=== PATIENT | male | born 1980 | race Caucasian/White ===

== ENCOUNTER 2025-01-26 09:35 | Emergency (ER) | payer OTHER, SELFPAY ==
[2025-01-26 09:51] VITALS: BP 108/90; PULSE 74; RESP 16; TEMP 36.5; O2SAT 100
[2025-01-26] MEDS: LIDOCAINE 1% LOCAL INJ 2 ML AMPUL 8 ML INFILTRATE (10:01)
--- NOTE | 2025-01-26 10:49 | ED_ITS ---
HPI - Wound/Laceration General Chief Complaint: Wound/Laceration Stated Complaint: Cut R Hand Time Seen by Provider: 01/26/25 10:00 Source: patient and RN notes reviewed Mode of arrival: ambulatory Limitations: no limitations History of Present Illness HPI narrative: 45-year-old male patient presents to the [facility] complaining of laceration to right hand. Patient has had approximately 30 minutes ago he was at work using a brain new razor when he accidentally cut the palmar surface his right hand. Patient reports to lacerations to the medial palmar hand near his pinky. Patient denies any dysfunction in his hand. Denies any numbness or tingling. Hemostasis achieved prior to arrival. Patient's tetanus is up-to-date. Patient denies any other injuries or symptoms. Patient used a cotton flannel to control bleeding. Related Data Home Medications ?Medication ?Instructions ?Recorded ?Confirmed ?Last Taken ?Type atorvastatin 20 mg tablet mg 01/26/25 Unknown History chlorthalidone 25 mg tablet mg 01/26/25 Unknown Histo ry fenofibrate 160 mg tablet mg 01/26/25 Unknown History lisinopril 20 mg tablet mg 01/26/25 Unknown History omeprazole 40 mg capsule,delayed mg 01/26/25 Unknown History release sucralfate 1 gram tablet 01/26/25 Unknown History Allergies Allergy/AdvReac Type Severity Reaction Status Date / Time No Known Allergies Allergy Verified 01/26/25 09:52 Review of Systems Review of Systems: CONSTITUTIONAL: Denies fever, chills, or sweats. EYES: Denies visual changes, redness, or discharge. ENT: Denies rhinorrhea, congestion, sore throat, or otalgia. CARDIOVASCULAR: Denies chest pain, palpitations, or edema. RESPIRATORY: Denies cough or dyspnea. GASTROINTESTINAL: Denies abdominal pain, nausea, vomiting, or diarrhea. GENITOURINARY: Denies dysuria or hematuria. SKIN: Denies rash or itching. Positive for laceration. MUSCULOSKELETAL: Denies back pain, joint pain, or myalgia. NEUROLOGIC: Denies headache, numbness, or weakness. PSYCHIATRIC: Denies anxiety or depression. All other systems reviewed are negative, except as documented in HPI. PMFSH Comments At the time of my signature, I reviewed and agree with the nursing past medical, surgical, social, and family history. There is no relevant family history pertinent to the patient complaint. Exam Narrative: GENERAL: This is a well-nourished, well-developed adult, in no apparent distress. They are non ill-appearing, nontoxic appearing. HEAD: normocephalic, atraumatic. EYES: Sclera clear/white. Conjunctiva normal. Vision is grossly intact. Extraocular movements intact EARS: External ears normal, Hearing grossly intact. NOSE: External nose normal THROAT: Mucous membranes moist, NECK: Neck supple, CARDIOVASCULAR: Regular rate and rhythm RESPIRATORY: Respiratory rate normal, respiratory effort nonlabored, no respir atory distress SKIN: warm, Dry, intact with no suspicious lesions or rash, good texture and turgor. NEURO: awake, alert, and oriented to person, place and time. There were no obvious focal neurologic abnormalities. EXTREMITIES: Right hand: There is a laceration to the medial palmar surface of the right hand. On laceration is irregular with a flap, distal palmar laceration measuring approximately 3 cm, which approximates well. There is another laceration to the proximal palmar medial surface of the right hand head is linear and approximates well measuring approximately 4 cm long. There is a foreign body present in each wound appears to be cotton like fuzz. Lacerations are near the 5th digit. On the palm. Patient is able to flex and extend against resistance at the DIP PIP, MCP joint of the 5th digit. Patient can feel me touch the tips of his fingers. Capillary refill less than 2 seconds, sensations intact. Left radial pulse 2 +and palpable. Radial, ulnar, median nerve distribution intact. Neurovascular status intact distal to the injury. Patient able to wiggle his fingers, patient can make a fist, thumbs-up sign, stop sign, okay sign. BACK: Nontender without deformity. No CVA tenderness. Course Course Emergency Course: Portions of this record may have been created with voice recognition software Level of Care: Express Care Visit Vital Signs Vital signs: Vital Signs Temperature 97.7 F 01/26/25 09:51 Pulse Rate 74 01/26/25 09:51 Respiratory Rate 16 01/26/25 09:51 Blood Pressure 108/90 01/26/25 09:51 Pulse Oximetry 100 01/26/25 09:51 Temperature 97.7 F 01/26/25 09:51 Pulse Rate 74 01/26/25 09:51 Respiratory Rate 16 01/26/25 09:51 Blood Pressure 108/90 01/26/25 09:51 Pulse Oximetry 100 01/26/25 09:51 Reviewed Procedures Laceration Laceration 1: Date: 01/26/25 Time: 10:15 Site: hand Side (If applicable): right (palmar medial distal) Size (cm): 3 Description: flap and irregular Depth: simple, single layer Local Anesthetic: lidocaine 1% Amount of anesthesia used (mL): 3 Pre-repair: wound explored, irrigated extensively and minor debridement ====== Skin Level ====== Skin layer closed with: nylon Size (cm): 5-0 Number of sutures: 7 Technique: simple, interrupted ====== Subcutaneous Layer ====== ====== Muscle Layer ====== ====== Tendon Layer ====== Dressing: triple antibiotic ointment, nonadherent dressing. Laceration 2: Date: 01/26/25 Time: 10:30 Site: hand Side (If applicable): right (Palmar medial proximal) Size (cm): 4 Description: linear and clean Depth: simple, single layer Local Anesthetic: lidocaine 1% Amount of anesthesia used (mL): 3 Pre-repair: wound explored, irrigated extensively and minor debridement ====== Skin Level ====== Skin layer closed with: nylon Size (cm): 5-0 Number of sutures: 6 Technique: simple, interrupted ====== Subcutaneous Layer ====== ====== Muscle Layer ====== ====== Tendon Layer ====== Dressing: Triple antibiotic ointment, non adherent dressing MDM - Wound/Laceration MDM Narrative Medical decision making narrative: Wounds appear superficial, well-approximated, neurovascular status intact distal patient's injury. No dysfunction of the right hand. Patient's tetanus up-to-date. Successful laceration repair up both lacerations patient exam. Nonadherent dressing with antibiotic ointment applied to wound. There was trace foreign bodies present at look like cotton fuzz consistent with the flannel he use to control bleeding of his wound. These were removed out of the wound succe ssfully. Will give her referral hand specialist if there are any issues developed with his right hand function. Discussed physical exam findings. Advised supportive measures and signs/symptoms to go to the ER. Pt is appropriate for outpt treatment and f/u. Differential Diagnosis Differential diagnosis: Likely laceration, abrasion and avulsion of skin Critical Care Time Critical Care Time Critical Care Time: No Discharge Plan Discharge Clinical Impression: Laceration of right hand Patient Disposition: Home Condition: Stable Instructions: Antibiotic Form, Laceration (ED) Additional Instructions: Your sutures need to be removed in 10-14 days. ?Wear the dressing that has been applied for the first 24 hours to allow a scab to start forming. ?After this, you may remove and wash as normal with soap and water. ?Do NOT wash with peroxide or alcohol. ?You may apply antibiotic ointment or Vaseline to the wound daily. Change the dressing daily or when visibly soiled, use a non adherent/semi occlusive dressing such as a Band-Aid to cover the wound. Leave the wound open to air at night. Avoid dirty water to the wound has healed completely. Tylenol ibuprofen as needed for pain. Follow instructions on the bottle. Follow up with your PCP 3-5 days. Look for any signs of infection such as redness, swelling, increased pain, or drainage fevers, aches, chills. ?Follow-up with hand specialist if any problems arise with your hand function. Go to the ER for any signs of infection or any serious concerns. Patient Language: Australian Prescriptions: No Action atorvastatin 20 mg tablet sucralfate 1 gram tablet lisinopril 20 mg tablet chlorthalidone 25 mg tablet omeprazole 40 mg capsule,delayed release(DR/EC) fenofibrate 160 mg tablet Follow-up/Referrals: Ian Caballero MD [Physician, Plastic Surgery] PHYSICIAN,[employer]IFIC[employer] [Primary Care Provider, Internal Medicine] Time of Disposition: 10:49
== END 2025-01-26 10:55 | disposition home or self-care (01) ==
DX: S61.411A Laceration without foreign body of right hand, initial encounter (principal); W26.8XXA Contact with other sharp object(s), not elsewhere classified, initial encounter; I10 Essential (primary) hypertension
CPT/HCPCS: 12002; 99202; G0463; J2003